=== PATIENT | male | born 1975 | race Caucasian/White ===

== ENCOUNTER 2023-10-07 10:20 | Emergency (ER) | payer OTHER, SELFPAY ==
[2023-10-07] VITALS (16 sets, daily range): BP systolic 157–176; BP diastolic 96–115; PULSE 50–76; RESP 13–22; TEMP 36.4; O2SAT 92–98
--- NOTE | ~2023-10-07 | XR_ITS ---
EXAMINATION: XR chest 1V portable DATE: 10/07/2023 10:45 INDICATION: Syncope. Upper respiratory infection. TECHNIQUE: A single frontal view of the chest was obtained. COMPARISON: None. FINDINGS: There is mild atelectasis in right lower lung zone. There is a mass in right upper lung zon e. No pleural effusion or pneumothorax. The heart size is normal. IMPRESSION: 1. Mass in right upper lung zone, which may be scarring, primary bronchogenic carcinoma, or an old ri b fracture. Noncontrast chest CT is recommended. Reviewed, dictated and finalized at location A. IMPRESSION: 1. Mass in right upper lung zone, which may be scarring, primary bronchogenic c arcinoma, or an old rib fracture. Noncontrast chest CT is recommended.
--- NOTE | ~2023-10-07 | CT_ITS ---
EXAMINATION:CT diagnostic chest wo con DATE: 10/07/2023 12:11 INDICATION: Abnormal chest radiograph. TECHNIQUE: Computed tomography (CT) of the chest was performed without intravenous contrast. Automate d exposure control and iterative reconstruction technique were employed. The dose-length product (DLP ) was 430.04 mGy-cm. COMPARISON: Chest single view 10/07/2023 FINDINGS: There are centrilobular nodules and groundglass opacities in right upper lobe and the lower lobes, consistent with pneumonia. No pleural effusion. The heart size is normal. No pericardial effu niki. There is deformity of the right second rib correlating with the chest radiograph abnormality. T here is mild chronic anterior wedging of multiple thoracic vertebral bodies. IMPRESSION: 1. Pneumonia involving the right upper lobe and the lower lobes. 2. Chronic deformity of the right second rib correlating with the chest radiograph abnormality. Reviewed, dictated and finalized at location A. IMPRESSION: 1. Pneumonia involving the right upper lobe and the lower lobes. 2. Chronic deformity of the right second rib correlating with the chest radiogr aph abnormality.
--- NOTE | 2023-10-07 10:25 | ECG_ITS ---
SEE SCANNED COPY FOR CONFIRMED REPORT MTDD
--- NOTE | 2023-10-07 10:35 | ED.SYNCOPE ---
HPI - Syncope General Chief Complaint: Syncope Stated Complaint: syncopal, low heart rate Time Seen by Provider: 10/07/23 10:22 History of Present Illness HPI narrative: Patient with history of vasovagal syncope, on new immunosuppressant medications for psoriasis, has been traveling recently just got home and has been having URI symptoms which started with a scratchy throat and developed into a cough and generalized malaise, overall today he has been started feel better, went to the Urgent Care, where during the exam he started feeling he was going to pass out and was able to warn them before he did. When EMS initially arrived his heart rate was quite low, they started fluids and gave atropine and transported here. He denies complaints now. Related Data Allergies Allergy/AdvReac Type Severity Reaction Status Date / Time No Known Allergies Allergy Unverified 04/15/18 12:47 Review of Systems Review of Systems: All systems reviewed & are unremarkable except as noted in HPI and below Exam Narrative: EXAMINATION OF ORGAN SYSTEMS/BODY AREAS: Constitutional: Vital signs per nursing GENERAL:[No acute distress, non-toxic appearing.] HEAD: Normal with no signs of head trauma. EYES: EOMI, conjunctiva normal ENT: Hearing grossly intact LUNGS: Nonlabored breathing. Clear to auscultation bilaterally HEART: [Regular rate and rhythm] ABD: [Soft], [nontender to palpation] EXT: Normal range of motion SKIN: [No rashes or lesions.] NEURO: [Alert and oriented x 3. No gross focal sensory or strength deficits.] Speaking with clear speech, no facial droop. PSYCH: Normal affect Course Vital Signs Vital signs: Vital Signs Temperature 97.6 F 10/07/23 10:22 Pulse Rate 73 10/07/23 10:22 Respiratory Rate 18 10/07/23 10:22 Blood Pressure 169/112 H 10/07/23 10:22 Pulse Oximetry 92 10/07/23 10:22 Oxygen Delivery Room Air 10/07/23 10:22 Temperature 97.6 F 10/07/23 10:22 Pulse Rate 66 10/07/23 11:15 Respiratory Rate 14 10/07/23 11:15 Blood Pressure 176/104 H 10/07/23 11:01 Pulse Oximetry 98 10/07/23 11:01 Oxygen Delivery Room Air 10/07/23 10:30 MDM - Syncope MDM Narrative Medical decision making narrative: 1) Differential diagnosis: vasovagal syncope, viral syndrome, dehydration, cardiac syncope 2) Comorbidities: Hypertension, hyperlipidemia 3) External notes reviewed: n/a 4) History sources independently obtained from: at bedside, EMS 5) Discussion of management with: n/a 6) Independent interpretation of: EKG which shows no acute ischemia or arrhythmia, chest x-ray which does show no cardiomegaly, no pneumothorax or obvious consolidations 7) Diagnostic tests or therapies considered but not ordered: n/a 8) Social determinants of health: n/a 9) Shared decision making: Your presents after an episode of syncope at Urgent Care, he had been feeling URI symptoms of malaise for the last few days but has been starting to feel better today, they did test him for COVID he states and they were negative, however during the exam he started feeling like he was going to pass out which feels similar to his prior vasovagal syncope, which happens quite often. Was initially bradycardic when EMS arrived they is now back to his normal self Workup here is benign, EKG nonischemic without arrhythmia, I have low concern for cardiac syncope as patient symptoms quite in line with his usual vasovagal syncope with prodrome and he is well appearing here with normal EKG, chest x-ray per radiologist would recommend CT chest so this is ordered. This shows pneumonia. I discussed with patient, as well as his asymptomatic hypertension (no signs or symptoms of end organ dysfunction; no chest pain or shortness of breath, neurological deficits, severe headaches, visual disturbance, oliguria, or symptoms of dissection/AAA). Long-term risks of hypertension, especially uncontrolled, were discussed including increased risks of kid
[2023-10-07] MEDS: LACTATED RINGERS 1,000 ML 999 ML IV CONT (10:46)
[2023-10-07 10:50] LABS: Basophils Percent Auto 0.6 % (0.2-1.2); Eosinophils Percent Auto 0.3 % (0-4.4); Hematocrit 48.7 % (42.0-52.0); Hemoglobin 16.3 g/dL (14.0-18.0); Lymphocytes Absolute Auto 0.99 K/mm3 (0.9-3.2); Lymphocytes Percent Auto 32.1 % (18.3-44.2); Mean Corpuscular HGB Conc 33.5 g/dl (32-36); Mean Corpuscular Hemoglobin 31.4 pg (26-34); Mean Corpuscular Volume 93.8 fl (80-100); Mean Platelet Volume 9.9 fl (7.4-10.4); Monocytes Absolute Auto 0.7 K/mm3 (0.1-0.6); Monocytes Percent Auto 23.1 % (2.6-8.5); Neutrophils Absolute Auto 1.4 K/mm3 (1.3-6.7); Neutrophils Percent Auto 43.9 % (45.5-73.1); Platelet Count Result 132 k/mm3 (150-375); Red Blood Count 5.19 M/mm3 (4.6-6.20); Red Cell Distribution Width 13.2 % (11.5-14.5); White Blood Count 3.1 K/mm3 (4.5-10.0)
[2023-10-07 11:01] LABS: Alanine Aminotransferase 23 U/L (6-50); Albumin Level 3.9 g/dL (3.5-5.1); Alkaline Phosphatase 47 U/L (38-126); Anion Gap 7 mmol/L (4-12); Aspartate Amino Transferase 34 U/L (17-59); Bilirubin,Total 1.4 mg/dL (0.2-1.3); Blood Urea Nitrogen 18 mg/dL (9-20); Calcium 8.6 mg/dL (8.4-10.2); Carbon Dioxide 26 mmol/L (22-30); Chloride 102 mmol/L (98-107); Estimated CRCL calculation 84 ml/min; Estimated Glomerular Filt Rate > 60; Glucose 121 mg/dL (65-110); Potassium 3.4 mmol/L (3.4-5.0); Sodium 135 mmol/L (137-145)
[2023-10-07] MEDS: AZITHROMYCIN 250 MG TABLET 500 MG PO (12:40)
== END 2023-10-07 13:10 | disposition home or self-care (01) ==
PROVIDERS: Emergency Provider Emergency Medicine
DX: R55 Syncope and collapse (principal); E86.0 Dehydration; J18.9 Pneumonia, unspecified organism
CPT/HCPCS: 36415; 71045; 71250; 80053; 85025; 93005; 96361; 96365; 99284; A9270; J0696; J7120